=== PATIENT | male | born 1955 | race African-American/Black ===

== ENCOUNTER 2019-06-12 06:29 | Emergency (ER) | payer MEDICARE, OTHER ==
[~2019-06-12] VITALS: Ht 180.3 cm; Wt 111.4 kg
[2019-06-12 06:36] VITALS: Ht 180.3 cm; Wt 111.4 kg
[2019-06-12] MEDS ORDERED: LISINOPRIL10 MG PO (06:37)
[2019-06-12] MEDS ORDERED: JENUVIA (06:37)
[2019-06-12] MEDS ORDERED: CIPRO250 MG PO (07:12)
[2019-06-12] MEDS ORDERED: FLOMAX0.4 MG PO (07:12)
[2019-06-12 07:55] VITALS: BP 113/75
== END 2019-06-12 07:27 | disposition home or self-care (01) ==
LOC: D.ER 06:29
DX: R33.9 Retention of urine, unspecified (principal); E11.9 Type 2 diabetes mellitus without complications